=== PATIENT | male | born 1985 | race African-American/Black ===

== ENCOUNTER 2018-08-12 03:36 | Emergency (ER) | payer MEDICAID ==
[~2018-08-12] VITALS: Ht 190.5 cm; Wt 77.0 kg
[2018-08-12 06:43] VITALS: BP 112/75
== END 2018-08-12 06:44 | disposition home or self-care (01) ==
LOC: ER 03:36
DX: F10.129 Alcohol abuse with intoxication, unspecified (principal); Y90.0 Blood alcohol level of less than 20 mg/100 ml; F17.200 Nicotine dependence, unspecified, uncomplicated
CPT/HCPCS: 99283; Z7610

== ENCOUNTER 2019-02-18 04:01 | Emergency (ER) | payer MEDICAID ==
[~2019-02-18] VITALS: Ht 182.9 cm; Wt 50.0 kg
[2019-02-18 04:05] VITALS: BP 132/87
== END 2019-02-18 05:56 | disposition left against medical advice (07) ==
LOC: ER 04:37
DX: Z53.21 Procedure and treatment not carried out due to patient leaving prior to being seen by health care provider (principal)